=== PATIENT | male | born 1995 | race Caucasian/White ===

== ENCOUNTER 2019-03-15 15:09 | Emergency (ER) | payer MEDICAID, OTHER ==
[~2019-03-15] VITALS: Ht 172.7 cm; Wt 91.0 kg
[2019-03-15 17:01] VITALS: BP 122/70
== END 2019-03-15 17:01 | disposition home or self-care (01) ==
LOC: ER 15:09
DX: H61.21 Impacted cerumen, right ear (principal)
CPT/HCPCS: 69209; 99282

== ENCOUNTER 2025-02-26 22:32 | Emergency (ER) | payer OTHER, MEDICAID ==
[~2025-02-26] VITALS: Ht 175.3 cm; Wt 80.0 kg
[2025-02-26 22:33] VITALS: O2SAT 99
[2025-02-26 23:54] LABS: BASOPHILS % 0.3 % (0.0-2.0); EOSINOPHILS % 2.1 % (0.0-5.0); HEMATOCRIT. 43.9 % (42.0-52.0); HEMOGLOBIN. 15.2 g/dL (14.0-18.0); LYMPHOCYTES % 17.2 % (20.0-50.0); MEAN CORPUSCULAR HEMOGLOBIN 29.7 pg (28.0-32.0); MEAN CORPUSCULAR HGB CONC 34.7 g/dL (31.0-37.0); MEAN CORPUSCULAR VOLUME 85.6 fL (80.0-94.0); MEAN PLATELET VOLUME 10.1 fl (7.4-10.4); MONOCYTES % 7.3 % (2.0-8.0); NEUTROPHILS % 73.1 % (40.0-76.0); PLATELET 147 x1000/uL (130-400); RED BLOOD CELL COUNT 5.14 mill/uL (4.7-6.1); RED CELL DISTRIBUTION WIDTH 13.8 % (11.6-14.6); WHITE BLOOD COUNT 6.8 x1000/uL (4.5-11.0)
[2025-02-27 00:01] LABS: CHLORIDE 109 mEq/L (98-107); POTASSIUM 3.9 mEq/L (3.5-5.1); SODIUM 141 mEq/L (136-145)
[2025-02-27 00:02] LABS: CARBON DIOXIDE 26 mEq/L (21-32)
[2025-02-27 00:07] LABS: CREATININE 1.3 mg/dL (0.6-1.3); ETHANOL BLOOD < 10 mg/dL (<10); GLUCOSE 99 mg/dL (70-105); UREA NITROGEN BLOOD 17 mg/dL (9-23)
[2025-02-27 00:20] LABS: TROPONIN I HIGH SENSITIVITY < 4 ng/L (3.0-53)
[2025-02-27] MEDS ORDERED: IBUP-2029 MT (01:41)
[2025-02-27 01:59] VITALS: BP 101/65; PULSE 84; RESP 17; TEMP 36.9; O2SAT 99
[2025-02-27 02:20] VITALS: TEMP 98.5
[2025-02-27] MEDS: ACETAMINOPHEN 325MG TABLET PO ONE (02:20)
== END 2025-02-27 02:00 | disposition home or self-care (01) ==
LOC: ER 22:32
DX: S93.401A Sprain of unspecified ligament of right ankle, initial encounter (principal); R55 Syncope and collapse; I10 Essential (primary) hypertension; Z00.00 Encounter for general adult medical examination without abnormal findings; X58.XXXA Exposure to other specified factors, initial encounter; Y93.89 Activity, other specified; Y92.89 Other specified places as the place of occurrence of the external cause; Y99.8 Other external cause status
CPT/HCPCS: 80048; 80320; 83880; 83690; 85025; 84484; 36415; 71045; 73610; 70450; 93005; 99285; Z7610; A4606; G0480